=== PATIENT | female | born 1935 | race African-American/Black ===

== ENCOUNTER 2023-12-18 13:37 | Outpatient (REF) | payer MEDICARE, MEDICAID, SELFPAY ==
--- NOTE | 2023-12-18 16:07 | MHC.AU.MED ---
Medical Clearance for Hearing Instrumentation Date: 12/18/23 Patient Name: Malissa Rollins Date of : 1935 Primary Care Provider: Referring Provider: Yanira Ferraro PA-C We have seen your patient on 12/18/23 and have determined that they are a candidate for amplification (See accompanying report). Specifically, they would benefit from: Hearing aid use in both ears There is a statute that addresses Medical Evaluation Requirements prior to fitting a patient with a hearing aid. According to [place] statute 265 CMR:6.03(1), (a) General. Except as provided in 265 CMR 6.03(1)(b), a molding cutter shall not sell a hearing aid unless the prospective user has presented to the molding cutter a written statement signed by a licensed physician that states that the patient's hearing loss has been medically evaluated and the patient may be considered a candidate for a hearing aid. The medical evaluation must have taken place within the preceding six months. Please note: Due to the [place] Statute referenced above, we cannot accept a signature other than that of a licensed physician. DAM ATTENDANT and PA signatures cannot be accepted. I am in agreement with the above recommendation. There is no medical contraindication for hearing instrumentation. Physician Signature Date Physician Name (Printed)
== END 2023-12-18 13:38 | disposition home or self-care (01) ==
LOC: HO.SH 13:37
PROVIDERS: Visit Provider Physician Assistant
DX: Z01.118 Encounter for examination of ears and hearing with other abnormal findings (principal); H90.6 Mixed conductive and sensorineural hearing loss, bilateral
CPT/HCPCS: 92553; 92555; 92567

== ENCOUNTER 2023-12-21 14:10 | Outpatient (REF) | payer MEDICARE, MEDICAID, SELFPAY ==
--- NOTE | 2024-02-14 10:29 | MHC.AU.MED ---
Medical Clearance for Hearing Instrumentation Date: 02/14/24 Patient Name: Malissa Rollins Date of : 1935 Primary Care Provider: Referring Provider: Yanira Ferraro PA-C We have seen your patient on 02/14/24 and have determined that they are a candidate for amplification (See accompanying report). Specifically, they would benefit from: Hearing aid use in both ears There is a statute that addresses Medical Evaluation Requirements prior to fitting a patient with a hearing aid. According to [place] statute 265 CMR:6.03(1), (a) General. Except as provided in 265 CMR 6.03(1)(b), a hearing instrument specialist shall not sell a hearing aid unless the prospective user has presented to the hearing instrument specialist a written statement signed by a licensed physician that states that the patient's hearing loss has been medically evaluated and the patient may be considered a candidate for a hearing aid. The medical evaluation must have taken place within the preceding six months. Please note: Due to the [place] Statute referenced above, we cannot accept a signature other than that of a licensed physician. COAL DELIVERER and PA signatures cannot be accepted. I am in agreement with the above recommendation. There is no medical contraindication for hearing instrumentation. Physician Signature Date Physician Name (Printed)
== END 2023-12-21 14:11 | disposition home or self-care (01) ==
LOC: HO.HAP 14:10
PROVIDERS: Visit Provider Physician Assistant
DX: Z46.1 Encounter for fitting and adjustment of hearing aid (principal); H90.6 Mixed conductive and sensorineural hearing loss, bilateral
CPT/HCPCS: 92590; V5275

== ENCOUNTER 2024-04-10 15:11 | Outpatient (REF) | payer MEDICARE, MEDICAID, SELFPAY | END 2024-04-10 15:12 | disposition home or self-care (01) | LOC: HO.HAP 15:11 | PROVIDERS: Visit Provider Internal Medicine | DX: Z46.1 Encounter for fitting and adjustment of hearing aid (principal); H90.3 Sensorineural hearing loss, bilateral | CPT/HCPCS: V5011; V5020; V5160; V5261; V5264 ==